=== PATIENT | male | born 1985 | race Two or more races ===

== ENCOUNTER 2019-04-23 21:08 | Inpatient (IN) | payer BC ==
[~2019-04-23] VITALS: Ht 177.8 cm; Wt 99.9 kg
[2019-04-23] MEDS ORDERED: KETOROLAC 30 MG/1 ML IM ONE (21:30)
[2019-04-23 21:44] LABS: RAPID INFLUENZA A Negative (Negative); RAPID INFLUENZA B Negative (Negative)
--- NOTE | 2019-04-23 22:05 | NUR ---
PT PRESENTING TO ER FOR SOB, COUGH CAUSING CP, AND FEVER SINCE YESTERDAY. LAST TYLENOL AND MOTRIN 3 HOURS AGO. CONNECTED TO MONITORING, TACHY HR NOTED. CALL LIGHT WITHIN REACH. AWAITING FURTHER ORDERS AT THIS TIME
--- NOTE | 2019-04-23 22:22 | NUR ---
PA TO BEDSIDE TO UPDATE PT AND FAMILY ON POC. PLAN FOR LABS AND CT, POSSIBLE ADMIT
[2019-04-23] MEDS ORDERED: SODIUM CHLORIDE FLUSH 10ML SYR IVF ONE (22:30)
[2019-04-23] MEDS ORDERED: SODIUM CHLORIDE 0.9% 1,000ML IVBOLUS ONE (22:30)
[2019-04-23] MEDS ORDERED: AZITHROMYCIN 500 MG in SODIUM CHLORIDE 0.9% 250 ML IV ONE (22:30)
[2019-04-23] MEDS ORDERED: CEFTRIAXONE PMX 1GM/50ML 50 ML IVPB ONE (22:30)
--- NOTE | 2019-04-23 22:45 | NUR ---
IV PLACED, LABS AND CULTURES DRAWN, FLUIDS RUNNING PER MAR. FAMILY AT BEDSIDE. AWAITING FURTHER TESTING AND RESULTS AT THIS TIME. CALL LIGHT WITHIN REACH.
[2019-04-23 22:47] LABS: MEAN CORPUSCULAR HEMOGLOBIN 29.3 pg (27.5-34.5); MEAN CORPUSCULAR HGB CONC 33.2 g/dL (33.2-36.2); MEAN CORPUSCULAR VOLUME 88.2 fL (81-97); MEAN PLATELET VOLUME 8.9 fL (7.4-10.4); PLATELET COUNT 231 x10^3/uL (130-400); RED BLOOD COUNT 5.06 x10^6/uL (4.38-5.82); RED CELL DISTRIBUTION WIDTH 12.9 % (9.4-14.8)
--- NOTE | 2019-04-23 22:51 | NUR ---
Patient brought to rm 17, AA&O x 4, speech clear, wearing a face mask. Oral Temperature 98.5. last dose of tynelol and motrin around 2029. IV infusing NSS. Pending lab results
[2019-04-23] MEDS ORDERED: CEFTRIAXONE PMX 1GM/50ML 50 ML ONE (22:59)
[2019-04-23 23:00] LABS: ALANINE AMINOTRANSFERASE 38 U/L (12-78); ALBUMIN 3.1 g/dL (3.4-5.0); ANION GAP 6 mmol/L (5-15); CALCIUM 9.3 mg/dL (8.5-10.1); CHLORIDE 104 mmol/L (98-107); CREATININE 1.08 mg/dL (0.7-1.3)
[2019-04-23 23:02] LABS: ALKALINE PHOSPHATASE 93 U/L (45-117); BILIRUBIN,TOTAL 0.6 mg/dL (0.2-1.0); TOTAL PROTEIN 7.5 g/dL (6.4-8.2)
[2019-04-23 23:12] LABS: MD YES
[2019-04-23] MEDS ORDERED: OMNIPAQUE 350 MG/ML, 100ML BOTTLE ONE (23:15)
[2019-04-23 23:16] LABS: BANDS%(MANUAL) 18 % (0-7); LYMPH#(MANUAL) 0.76 x10^3/uL (1-3.4); LYMPHS% (MANUAL) 4 % (22-44); MONOS#(MANUAL) 1.32 x10^3/uL (0.3-2.7); MONOS% (MANUAL) 7 % (2-9); MYELOCYTES# (MANUAL) 0.19 x10^3/uL (0-0); MYELOCYTES% (MANUAL) 1 % (0-0); SEG#(MANUAL) 13.23 x10^3/uL (1.8-6.8); SEGS% (MANUAL) 70 % (42-75)
[2019-04-23 23:17] LABS: PMNS WITH VACUOLES 1+
[2019-04-23 23:18] LABS: <PLATELET ESTIMATE> ADEQUATE; <PLT MORPHOLOGY> NORMAL PLT MORPH; <RBC MORPHOLOGY> NORMAL
--- NOTE | 2019-04-24 00:52 | NUR ---
Patient resting in bed, at bedside, provider at bedisde discussing results. Pending admission
[2019-04-24] MEDS ORDERED: ACETAMINOPHEN 500 MG TABLET PO ONE (01:00)
[2019-04-24] MEDS ORDERED: ONDANSETRON 2MG/ML, 2ML IVPush ONE (01:00)
[2019-04-24] MEDS ORDERED: MORPHINE SULFATE 4 MG/ML, 1ML IVPush PRN (01:00)
--- NOTE | 2019-04-24 01:16 | NUR ---
Report given to
[2019-04-24] MEDS ORDERED: ACETAMINOPHEN 500 MG TABLET ONE (01:24)
[2019-04-24] MEDS ORDERED: ONDANSETRON 2MG/ML, 2ML ONE (01:24)
[2019-04-24] MEDS ORDERED: MORPHINE SULFATE 4 MG/ML, 1ML ONE (01:24)
--- NOTE | 2019-04-24 01:34 | NUR ---
Provider at bedside talking to patient. Patient medicated per order
[2019-04-24 02:00] VITALS: BP 132/77
[2019-04-24] MEDS ORDERED: morphine SULFATE 10 MG/ML, 1ML IVPush PRN (02:30)
[2019-04-24] MEDS ORDERED: PROMETHAZINE 25 MG/ML, 1ML IM PRN (02:30)
[2019-04-24] MEDS ORDERED: hydrALAzine 20 MG/ML, 1ML IVPush PRN (02:30)
[2019-04-24] MEDS ORDERED: ONDANSETRON 2MG/ML, 2ML IVPush PRN (02:30)
[2019-04-24] MEDS: SODIUM CHLORIDE 0.9% 1,000 ML IV SCH ×3 (02:40→18:50)
[2019-04-24] MEDS: INSULIN LISPRO 100 UNITS/ML, PEN SQ-INSULIN SCH ×5 (03:02→21:10)
[2019-04-24] MEDS ORDERED: ATOR10TA9 PO (03:56)
[2019-04-24] MEDS ORDERED: METF-688 PO (03:56)
[2019-04-24 07:14] VITALS: BP 133/88
[2019-04-24] MEDS: ACETAMINOPHEN 325 MG TABLET PO PRN ×3 (08:08→18:49)
[2019-04-24 11:02] LABS: ANION GAP 7 mmol/L (5-15); CALCIUM 8.4 mg/dL (8.5-10.1); CHLORIDE 106 mmol/L (98-107); CREATININE 0.81 mg/dL (0.7-1.3)
[2019-04-24 11:03] LABS: ALANINE AMINOTRANSFERASE 28 U/L (12-78); ALBUMIN 2.5 g/dL (3.4-5.0)
[2019-04-24 11:05] LABS: ALKALINE PHOSPHATASE 75 U/L (45-117); BILIRUBIN,TOTAL 0.4 mg/dL (0.2-1.0); TOTAL PROTEIN 6.3 g/dL (6.4-8.2)
[2019-04-24 11:09] LABS: MEAN CORPUSCULAR HEMOGLOBIN 29.8 pg (27.5-34.5); MEAN CORPUSCULAR HGB CONC 33.2 g/dL (33.2-36.2); MEAN CORPUSCULAR VOLUME 89.7 fL (81-97); MEAN PLATELET VOLUME 8.7 fL (7.4-10.4); PLATELET COUNT 214 x10^3/uL (130-400); RED BLOOD COUNT 4.37 x10^6/uL (4.38-5.82)
[2019-04-24 11:51] LABS: MD YES
[2019-04-24 11:54] LABS: <PLATELET ESTIMATE> ADEQUATE; <PLT MORPHOLOGY> NORMAL PLT MORPH; <RBC MORPHOLOGY> NORMAL; BAND#(MANUAL) 2.03 x10^3/uL; BANDS%(MANUAL) 12 % (0-7); LYMPH#(MANUAL) 2.37 x10^3/uL (1-3.4); LYMPHS% (MANUAL) 14 % (22-44); METAMYELOCYTES# (MANUAL) 0.17 x10^3/uL (0-0); METAMYELOCYTES% (MANUAL) 1 % (0-1); MONOS#(MANUAL) 0.51 x10^3/uL (0.3-2.7); MONOS% (MANUAL) 3 % (2-9); SEG#(MANUAL) 11.83 x10^3/uL (1.8-6.8); SEGS% (MANUAL) 70 % (42-75)
[2019-04-24 12:30] VITALS: BP 138/90
[2019-04-24 18:37] VITALS: BP 138/84
[2019-04-24] MEDS ORDERED: CEFTRIAXONE PMX 1GM/50ML 50 ML IV SCH (23:00)
[2019-04-25] MEDS ORDERED: AZITHROMYCIN 500 MG in SODIUM CHLORIDE 0.9% 250 ML IV SCH
[2019-04-25 00:37] VITALS: BP 142/84
[2019-04-25] MEDS: SODIUM CHLORIDE 0.9% 1,000 ML IV SCH ×2 (04:09→10:47)
[2019-04-25] MEDS: ACETAMINOPHEN 325 MG TABLET PO PRN (05:29)
[2019-04-25 06:01] LABS: MEAN CORPUSCULAR HGB CONC 33.2 g/dL (33.2-36.2); MEAN CORPUSCULAR VOLUME 87.4 fL (81-97); PLATELET COUNT 220 x10^3/uL (130-400); RED BLOOD COUNT 4.11 x10^6/uL (4.38-5.82); RED CELL DISTRIBUTION WIDTH 12.6 % (9.4-14.8)
[2019-04-25 06:15] LABS: CHLORIDE 108 mmol/L (98-107)
[2019-04-25 06:24] LABS: ALANINE AMINOTRANSFERASE 21 U/L (12-78); ALBUMIN 2.3 g/dL (3.4-5.0); ALKALINE PHOSPHATASE 83 U/L (45-117); ANION GAP 8 mmol/L (5-15); BILIRUBIN,TOTAL 1.2 mg/dL (0.2-1.0); CALCIUM 8.4 mg/dL (8.5-10.1); CREATININE 0.62 mg/dL (0.7-1.3); TOTAL PROTEIN 6.3 g/dL (6.4-8.2)
[2019-04-25 06:48] LABS: BASOPHILS # (AUTO) 0.01 x10^3/uL (0-0.1); BASOPHILS % (AUTO) 0 % (0-1); EOSINOPHILS # (AUTO) 0.04 x10^3/uL (0-0.4); EOSINOPHILS % (AUTO) 0 % (1-7); LYMPHOCYTES # (AUTO) 1.89 x10^3/uL (1-3.4); LYMPHOCYTES % (AUTO) 14 % (22-44); MD SCAN; MONOCYTES # (AUTO) 0.82 x10^3/uL (0.2-0.8); MONOCYTES % (AUTO) 6 % (2-9); NEUTROPHILS # (AUTO) 11.02 x10^3/uL (1.8-6.8); NEUTROPHILS % (AUTO) 80 % (42-75)
[2019-04-25 07:15] VITALS: BP 148/91
[2019-04-25] MEDS: INSULIN LISPRO 100 UNITS/ML, PEN SQ-INSULIN SCH ×3 (07:34→15:55)
[2019-04-25] MEDS ORDERED: OMNIPAQUE 350 MG/ML, 100ML BOTTLE ONE (10:54)
[2019-04-25 12:30] VITALS: BP 138/95
[2019-04-25] MEDS ORDERED: FLU VACC QS2019-20 36MOS UP/PF 0.5 ML IM-VACC ONE (14:30)
[2019-04-25 15:18] LABS: MICROSCOPIC NOT IND
[2019-04-25] MEDS ORDERED: LACT1CAP35 PO (15:44)
[2019-04-25] MEDS ORDERED: CEFD300C37 PO (15:44)
[2019-04-25] MEDS ORDERED: AZIT500T10 PO (15:44)
[2019-04-25] MEDS ORDERED: ATORVASTATIN 10 MG TABLET PO SCH (21:00)
== END 2019-04-25 16:30 | disposition home or self-care (01) | DRG 871 ==
LOC: ED 04-24 00:38 → EDIP 04-24 00:56 → 3N 04-24 02:06 → DCLOUNGE 04-25 16:28
PROVIDERS: ADMIT Family Medicine; ATTEND Family Medicine
DX: A41.9 Sepsis, unspecified organism (principal); J18.9 Pneumonia, unspecified organism; D18.03 Hemangioma of intra-abdominal structures; E11.65 Type 2 diabetes mellitus with hyperglycemia; E66.9 Obesity, unspecified; E78.5 Hyperlipidemia, unspecified; N28.89 Other specified disorders of kidney and ureter; M25.461 Effusion, right knee; R09.81 Nasal congestion; R16.0 Hepatomegaly, not elsewhere classified; Z68.31 Body mass index [BMI] 31.0-31.9, adult; Z83.3 Family history of diabetes mellitus; Z23 Encounter for immunization
CPT/HCPCS: 36415; 71046; 71260; 74178; 80053; 81003; 82962; 83036; 83605; 84145; 85025; 87040; 87070; 87147; 87205; 87400; 90686; 96361; 96365; 96375; 99285; G0378; J0456; J0696; J2405; Q9967; J1815; J2270; J7030; J7050